=== PATIENT | male | born 1935 | race Caucasian/White ===

== ENCOUNTER 2016-09-29 19:05 | Inpatient (IN) | payer OTHER ==
[~2016-09-29] VITALS: Ht 170.2 cm; Wt 97.8 kg
[~2016-09-29 19:05] MED LIST: AMLO10TA4 PO; ASPI-496 PO; CEFD300C37 PO; SIMV40TA PO; TAMS-11 PO
[2016-09-29] MEDS ORDERED: ACETAMINOPHEN 500 MG TABLET ONE (19:18)
[2016-09-29] MEDS ORDERED: SODIUM CHLORIDE 0.9% 1,000ML IVBOLUS ONE (20:00)
[2016-09-29] MEDS ORDERED: SODIUM CHLORIDE FLUSH 10ML SYR IVF ONE (20:00)
[2016-09-29] MEDS ORDERED: ACETAMINOPHEN 325 MG TABLET PO ONE (20:00)
[2016-09-29 20:21] LABS: ASPARTATE AMINO TRANSFERASE 34 U/L (15-37); BLOOD UREA NITROGEN 22 mg/dL (7-18)
[2016-09-29 20:22] LABS: IS PT STATUS REG ER OR PRE ER? YES
[2016-09-29] MEDS ORDERED: VANCOMYCIN PER PHARMACY MC ONE (22:30)
[2016-09-29] MEDS ORDERED: PLEASE ENTER WEIGHT MC SCH (22:30)
[2016-09-29] MEDS ORDERED: CEFTRIAXONE PMX 1GM/50ML 50 ML IVPB ONE (22:30)
[2016-09-29] MEDS ORDERED: CEFTRIAXONE PMX 1GM/50ML 50 ML ONE (22:37)
[2016-09-29] MEDS ORDERED: VANCOMYCIN PER PHARMACY MC PRN (23:00)
[2016-09-29 23:41] VITALS: BP 127/72
[2016-09-29] MEDS ORDERED: PHARMACOKINETIC MONITORING MC PRN (23:45)
[2016-09-29] MEDS ORDERED: VANCOMYCIN 2,000 MG in SODIUM CHLORIDE 0.9% 500 ML IV ONE (23:45)
[2016-09-30] VITALS (9 sets, daily range): BP systolic 107–180; BP diastolic 58–82
[2016-09-30] MEDS: PIPERACILLIN/TAZO/PMX 3.375GM 50 ML IV SCH ×5 (00:11→23:25)
[2016-09-30] MEDS ORDERED: DIPHENHYDRAMINE 50 MG/ML, 1ML ONE (03:19)
[2016-09-30] MEDS ORDERED: DIPHENHYDRAMINE 50 MG/ML, 1ML IVPush ONE (03:30)
[2016-09-30] MEDS ORDERED: FAMOTIDINE 20 MG/2 ML IVPush ONE (03:30)
[2016-09-30] MEDS ORDERED: ONDANSETRON 2MG/ML, 2ML ONE (03:34)
[2016-09-30] MEDS ORDERED: EPINEPHRINE 1 MG/ML, 1ML SQ ONE (04:00)
[2016-09-30] MEDS ORDERED: ONDANSETRON 2MG/ML, 2ML IVPush ONE (04:00)
[2016-09-30] MEDS ORDERED: ACETAMINOPHEN 325 MG TABLET ONE (04:38)
[2016-09-30 04:50] LABS: BLOOD UREA NITROGEN 18 mg/dL (7-18)
[2016-09-30] MEDS ORDERED: ACETAMINOPHEN 325 MG TABLET PO PRN (05:00)
[2016-09-30] MEDS ORDERED: SODIUM CHLORIDE 0.9%, 500ML IVBOLUS ONE (06:00)
[2016-09-30] MEDS ORDERED: ONDANSETRON 2MG/ML, 2ML IVPush PRN (06:00)
[2016-09-30] MEDS: ASPIRIN 81 MG TABLET EC PO SCH (09:23)
[2016-09-30] MEDS: AMLODIPINE 5 MG TABLET PO SCH (09:24)
[2016-09-30] MEDS ORDERED: VANCOMYCIN PER PHARMACY MC PRN (13:00)
[2016-09-30] MEDS: POTASSIUM CHLORIDE 20 MEQ in SODIUM CHLORIDE 0.45% 1,000 ML IV SCH ×2 (13:28→23:24)
[2016-09-30] MEDS ORDERED: PHARMACOKINETIC MONITORING MC PRN (13:30)
[2016-09-30] MEDS ORDERED: OMNIPAQUE 350 MG/ML, 100ML BOTTLE ONE (15:50)
[2016-09-30] MEDS: SIMVASTATIN 40 MG TABLET PO SCH (19:36)
[2016-10-01] MEDS ORDERED: VANCOMYCIN 1,800 MG in SODIUM CHLORIDE 0.9% 500 ML IV SCH
[2016-10-01 01:31] VITALS: BP 121/61
[2016-10-01] MEDS: PIPERACILLIN/TAZO/PMX 3.375GM 50 ML IV SCH ×3 (05:12→18:31)
[2016-10-01 07:15] VITALS: BP 105/76
[2016-10-01] MEDS: ASPIRIN 81 MG TABLET EC PO SCH (10:17)
[2016-10-01] MEDS: AMLODIPINE 5 MG TABLET PO SCH (10:17)
[2016-10-01] MEDS ORDERED: SENNA/DOCUSATE TABLET PO PRN (11:30)
[2016-10-01] MEDS ORDERED: POLYETHYLENE GLYCOL 17 GM PACKET NG PRN (11:30)
[2016-10-01] MEDS: POTASSIUM CHLORIDE 20 MEQ in SODIUM CHLORIDE 0.45% 1,000 ML IV SCH (13:26)
[2016-10-01 14:26] VITALS: BP 133/61
[2016-10-01] MEDS ORDERED: GADOXETATE DISODIUM 2.5 MMOL/10 ML ONE (15:43)
[2016-10-01 19:54] VITALS: BP 138/75
[2016-10-01] MEDS: SIMVASTATIN 40 MG TABLET PO SCH (20:49)
[2016-10-02] MEDS: PIPERACILLIN/TAZO/PMX 3.375GM 50 ML IV SCH ×3 (01:26→12:42)
[2016-10-02 01:28] VITALS: BP 133/68
[2016-10-02 08:30] VITALS: BP 132/64
[2016-10-02] MEDS: ASPIRIN 81 MG TABLET EC PO SCH (08:53)
[2016-10-02] MEDS: AMLODIPINE 5 MG TABLET PO SCH (08:53)
[2016-10-02 13:51] VITALS: BP 134/74
[2016-10-02] MEDS ORDERED: CEFTRIAXONE PMX 2GM/50ML 50 ML IV SCH (18:00)
[2016-10-02 19:00] VITALS: BP 131/65
[2016-10-02] MEDS: SIMVASTATIN 40 MG TABLET PO SCH (19:53)
[2016-10-03 04:00] VITALS: BP 106/64
[2016-10-03 07:20] VITALS: BP 147/78
[2016-10-03] MEDS: AMLODIPINE 5 MG TABLET PO SCH (08:52)
[2016-10-03] MEDS: ASPIRIN 81 MG TABLET EC PO SCH (08:52)
[2016-10-03] MEDS ORDERED: CEFDINIR 300 MG CAPSULE PO SCH (09:00)
[2016-10-03] MEDS ORDERED: AMOX500T PO (11:00)
== END 2016-10-03 12:56 | disposition home or self-care (01) | DRG 871 ==
LOC: ED 20:58 → EDIP 22:13 → INTOOBSV 22:13 → 3NW 23:32 → OBSVTOIN 09-30 09:35
PROVIDERS: ADMIT Family Medicine; ATTEND Family Medicine
PROC: 0T9B70Z Drainage of Bladder with Drainage Device, Via Natural or Artificial Opening (ICD-10-PCS; principal; 2016-09-29)
DX: A41.50 Gram-negative sepsis, unspecified (principal); G93.40 Encephalopathy, unspecified; K86.2 Cyst of pancreas; I45.10 Unspecified right bundle-branch block; A41.51 Sepsis due to Escherichia coli [E. coli]; B96.20 Unspecified Escherichia coli [E. coli] as the cause of diseases classified elsewhere; E78.00 Pure hypercholesterolemia, unspecified; E78.5 Hyperlipidemia, unspecified; I10 Essential (primary) hypertension; K04.7 Periapical abscess without sinus; K76.89 Other specified diseases of liver; K43.2 Incisional hernia without obstruction or gangrene; R32 Unspecified urinary incontinence; R65.20 Severe sepsis without septic shock; Z80.0 Family history of malignant neoplasm of digestive organs; Z85.46 Personal history of malignant neoplasm of prostate; Z85.820 Personal history of malignant melanoma of skin; Z86.010 Personal history of colon polyps; Z90.49 Acquired absence of other specified parts of digestive tract; Z88.1 Allergy status to other antibiotic agents; Z88.2 Allergy status to sulfonamides; Z79.899 Other long term (current) drug therapy; Z79.82 Long term (current) use of aspirin
CPT/HCPCS: 36415; 70450; 71010; 74177; 74183; 76705; 80048; 80053; 81003; 82105; 82378; 82962; 83605; 83880; 84145; 84484; 85025; 85610; 85730; 86301; 87040; 87077; 87186; 93005; 93306; 96361; 96365; G0378; J0696; J2405; J2543; J3370; J3480; Q9967; A9581; J1200; J7030; J7040; S0028

== ENCOUNTER → 2019-05-10 | Outpatient (CLI) | payer MEDICARE ==
[~2019-05-10] MED LIST changes: +AMOX500T PO; +OMNIPAQUE 350 MG/ML, 150 ML BOTTLE ONE
== END | disposition home or self-care (01) ==
LOC: CFH 13:29
PROVIDERS: ATTEND Physician Assistant
DX: K43.9 Ventral hernia without obstruction or gangrene (principal); K86.2 Cyst of pancreas; M47.9 Spondylosis, unspecified
CPT/HCPCS: 74178; Q9967

== ENCOUNTER 2019-08-03 09:38 | Day surgery (SDC) | payer MEDICARE ==
[~2019-08-03] VITALS: Ht 170.2 cm; Wt 98.2 kg
[~2019-08-03 09:38] MED LIST changes: +GLUC15006 PO; +LISI40TA PO; -OMNIPAQUE 350 MG/ML, 150 ML BOTTLE ONE
[2019-08-03] MEDS ORDERED: FENTANYL PF 100 MCG/2ML ONE (10:21)
[2019-08-03 10:27] VITALS: BP 165/88
[2019-08-03] MEDS ORDERED: CHLORHEXIDINE 15 ML UDC MM STA (10:30)
[2019-08-03] MEDS ORDERED: LACTATED RINGERS 1,000 ML IV SCH (10:31)
[2019-08-03] MEDS ORDERED: CHLORHEXIDINE 15 ML UDC ONE (10:34)
[2019-08-03] MEDS ORDERED: FENTANYL PF 100 MCG/2ML IV PRN (11:00)
[2019-08-03] MEDS ORDERED: OXYcodone 5 MG/5 ML ORAL.SOL UDC PO PRN (11:00)
[2019-08-03] MEDS ORDERED: PROMETHAZINE 25 MG/ML, 1ML IVPush PRN (11:00)
[2019-08-03] MEDS ORDERED: morphine SULFATE 10 MG/ML, 1ML IVPush PRN (11:00)
[2019-08-03] MEDS ORDERED: PROPOFOL 10 MG/ML, 20ML ONE (11:09)
[2019-08-03] MEDS ORDERED: MIDAZOLAM 1 MG/ML, 2ML ONE (11:09)
[2019-08-03] MEDS ORDERED: CEFAZOLIN 1,000 MG ONE (11:09)
[2019-08-03] MEDS ORDERED: GEMCITABINE HCL 2,000 MG in SODIUM CHLORIDE 0.9% 100 ML IS ONE (11:30)
[2019-08-03] MEDS ORDERED: ONDANSETRON 2MG/ML, 2ML IV PRN (12:30)
[2019-08-03] MEDS ORDERED: HYDROcodone/APAP 5/325 TABLET PO PRN (12:30)
[2019-08-03] MEDS ORDERED: hydrALAzine 20 MG/ML, 1ML ONE (12:51)
[2019-08-03] MEDS ORDERED: hydrALAzine 20 MG/ML, 1ML IV PRN (13:00)
== END 2019-08-03 16:10 | disposition home or self-care (01) ==
LOC: OUT 09:38
PROVIDERS: ATTEND Urology
DX: C67.4 Malignant neoplasm of posterior wall of bladder (principal); I10 Essential (primary) hypertension; E66.9 Obesity, unspecified; Z79.82 Long term (current) use of aspirin; Z79.899 Other long term (current) drug therapy; Z85.46 Personal history of malignant neoplasm of prostate; Z88.2 Allergy status to sulfonamides; Z88.8 Allergy status to other drugs, medicaments and biological substances; Z90.79 Acquired absence of other genital organ(s)
CPT/HCPCS: 52234; 88305; 93005; J0360; J0690; J2250; J2704; J3010; J7120; J9201; U0001

== ENCOUNTER 2019-09-19 15:51 | Inpatient (IN) | payer MEDICARE ==
[~2019-09-19] VITALS: Ht 170.2 cm; Wt 97.3 kg
[2019-09-19 16:28] LABS: BASOPHILS # (AUTO) 0.03 x10^3/uL (0-0.1); BASOPHILS % (AUTO) 0 % (0-1); EOSINOPHILS # (AUTO) 0.05 x10^3/uL (0-0.4); EOSINOPHILS % (AUTO) 1 % (1-7); LYMPHOCYTES # (AUTO) 1.62 x10^3/uL (1-3.4); LYMPHOCYTES % (AUTO) 20 % (22-44); MD NO; MEAN CORPUSCULAR HGB CONC 33.8 g/dL (33.2-36.2); MONOCYTES # (AUTO) 0.86 x10^3/uL (0.2-0.8); MONOCYTES % (AUTO) 11 % (2-9); NEUTROPHILS # (AUTO) 5.45 x10^3/uL (1.8-6.8); NEUTROPHILS % (AUTO) 68 % (42-75); PLATELET COUNT 252 x10^3/uL (130-400); RED BLOOD COUNT 4.28 x10^6/uL (4.38-5.82); RED CELL DISTRIBUTION WIDTH 15.4 % (9.4-14.8)
[2019-09-19 16:35] LABS: ANION GAP 6 mmol/L (5-15); CALCIUM 9.2 mg/dL (8.5-10.1); CHLORIDE 105 mmol/L (98-107); CREATININE 1.11 mg/dL (0.7-1.3)
[2019-09-19 16:38] LABS: TROPONIN I < 0.015 ng/mL (0.000-0.045)
--- NOTE | 2019-09-19 16:42 | NUR ---
Pt to room at this time.
--- NOTE | 2019-09-19 16:50 | NUR ---
"SHORTNESS OF BREATH STARTED THIS MORNING. I FEEL FRANK PATTER IN MY LITTLE HEART". PAIN STARTED IN PT'S RLQ ABD AND THEN STARTED CASUING SOB. PT IN ROOM WITH CONT HAND RIVETER, SPO2, BP Q 30 MIN, SIDE RAILS UP X2, CALL LIGHT IN REACH. AWATING MD TO SEE.
--- NOTE | 2019-09-19 16:53 | NUR ---
HXPROSTATE CA 2001,GALL BLADDER REMOVED APR 2016, BLADDER CANCER WITH SURG TWO MONTHS AGO.
[2019-09-19] MEDS ORDERED: AMLO-150 PO (16:58)
[2019-09-19] MEDS ORDERED: AMLO10TA4 PO (16:58)
[2019-09-19] MEDS ORDERED: SODIUM CHLORIDE 0.9% 1,000ML IVBOLUS ONE (18:30)
--- NOTE | 2019-09-19 18:53 | NUR ---
REPORT RECIEVED FROM ELLIE PEARL.
[2019-09-19 19:21] LABS: MICROSCOPIC NOT IND
--- NOTE | 2019-09-19 19:27 | NUR ---
PATIENT TAKEN TO CT VIA DIOR AND SKIP.
[2019-09-19] MEDS ORDERED: OMNIPAQUE 350 MG/ML, 100ML BOTTLE ONE (19:41)
--- NOTE | 2019-09-19 19:44 | NUR ---
PATIENT RETURNED FROM CT SCAN. TOLERATED WELL.
--- NOTE | 2019-09-19 20:07 | NUR ---
PATIENT UPDATED ON PLAN OF CARE. PATIENT AND DAUGHTER DENY ANY FURTHER NEEDS AT THIS TIME.
--- NOTE | 2019-09-19 20:44 | NUR ---
PATIENT AND DAUGHTER UPDATED ON PLAN OF CARE.
--- NOTE | 2019-09-19 21:10 | NUR ---
PATIENT TAKEN TO CT VIA GURNEY.
[2019-09-19] MEDS ORDERED: OMNIPAQUE 350 MG/ML, 75ML BOTTLE ONE (21:48)
--- NOTE | 2019-09-19 21:49 | NUR ---
PATIENT AND FAMILY UPDATED ON PLAN OF CARE. NO NOTED FURTHER NEEDS AT THIS TIME. PATIENT DENIES NEEDING ANY EDUCATION REGARDING PE AND CTA RESULTES.
[2019-09-19] MEDS ORDERED: HEPARIN 25,000 UNITS/250ML PMX 250 ML IV PRN (22:00)
[2019-09-19] MEDS ORDERED: HEPARIN 5,000 UNITS/ML, 1ML IV ONE (22:00)
[2019-09-19] MEDS ORDERED: HEPARIN 25,000 UNITS/250ML PMX 250 ML ONE (22:04)
[2019-09-19] MEDS ORDERED: HEPARIN 5,000 UNITS/ML, 1ML ONE (22:04)
[2019-09-19] MEDS ORDERED: SODIUM CHLORIDE FLUSH 10ML SYR IVF PRN (22:30)
[2019-09-19] MEDS ORDERED: MORPHINE SULFATE 4 MG/ML, 1ML ONE (22:40)
[2019-09-19] MEDS ORDERED: ONDANSETRON 2MG/ML, 2ML ONE (22:40)
--- NOTE | 2019-09-19 22:40 | NUR ---
PATIENT HAS HAD SECOND IV STARTED, 20G LEFT HAND. TOLERATED WELL. PAIN MEDICATIONS ADMINISTERED PER ORDER. PATIENT GIVEN INFORMATION REGARDING NAUSEA MEDICATIONS AND PAIN MEDICATIONS, VERBALLY CONFIRMED EDUCATION. NO NOTED ACUTE DISTRESS. WILL CONTINUE TO MONITOR. PATIENT TOLERATING THERAPY WELL.
[2019-09-19] MEDS ORDERED: ONDANSETRON 2MG/ML, 2ML IVPush ONE (23:00)
[2019-09-19] MEDS ORDERED: MORPHINE SULFATE 4 MG/ML, 1ML IVPush PRN (23:00)
--- NOTE | 2019-09-19 23:28 | NUR ---
PATIENT AND FAMILY UPDATED ON PLAN OF CARE. NO NOTED FURTHER NEEDS AT THIS TIME. PATIENT WILL BE TRANSFERRED TO FLOOR. REPORT GIVEN TO ELLIE FOLEY, ROOM NUMBER [id number]. FAMILY GIVEN INFORMATION AND CONTACT INFORMATION FOR UNIT
[2019-09-19] MEDS ORDERED: METOCLOPRAMIDE 5 MG/ML, 2ML IVPush PRN (23:30)
[2019-09-19] MEDS ORDERED: LABETALOL 5MG/ML, 20ML IVPush PRN (23:30)
[2019-09-19] MEDS ORDERED: ONDANSETRON 2MG/ML, 2ML IVPush PRN (23:30)
[2019-09-19] MEDS ORDERED: hydrALAzine 20 MG/ML, 1ML IVPush PRN (23:30)
[2019-09-19] MEDS ORDERED: ENALAPRILAT 1.25 MG/ML, 2ML IVPush PRN (23:30)
[2019-09-19] MEDS ORDERED: BISACODYL 10 MG SUPP PR PRN (23:30)
[2019-09-19] MEDS ORDERED: morphine SULFATE 10 MG/ML, 1ML IVPush PRN (23:30)
[2019-09-19] MEDS ORDERED: TRAZODONE 50MG TABLET PO PRN (23:30)
[2019-09-19] MEDS ORDERED: POLYETHYLENE GLYCOL 17 GM PACKET PO PRN (23:30)
[2019-09-19] MEDS ORDERED: ONDANSETRON ODT 4 MG PO PRN (23:30)
[2019-09-19] MEDS ORDERED: ACETAMINOPHEN 325 MG TABLET PO PRN (23:30)
[2019-09-19] MEDS ORDERED: HEPARIN 5,000 UNITS/ML, 1ML IV PRN (23:45)
[2019-09-20] VITALS (7 sets, daily range): BP systolic 94–133; BP diastolic 46–73
[2019-09-20] MEDS: DOCUSATE 100 MG CAPSULE PO PRN ×2 (00:53→16:25)
[2019-09-20 05:05] LABS: BASOPHILS # (AUTO) 0.03 x10^3/uL (0-0.1); BASOPHILS % (AUTO) 0 % (0-1); EOSINOPHILS # (AUTO) 0.02 x10^3/uL (0-0.4); EOSINOPHILS % (AUTO) 0 % (1-7); LYMPHOCYTES # (AUTO) 2.31 x10^3/uL (1-3.4); LYMPHOCYTES % (AUTO) 29 % (22-44); MD NO; MEAN CORPUSCULAR HGB CONC 33.7 g/dL (33.2-36.2); MEAN PLATELET VOLUME 8.1 fL (7.4-10.4); MONOCYTES # (AUTO) 0.84 x10^3/uL (0.2-0.8); MONOCYTES % (AUTO) 11 % (2-9); NEUTROPHILS # (AUTO) 4.68 x10^3/uL (1.8-6.8); NEUTROPHILS % (AUTO) 59 % (42-75); PLATELET COUNT 215 x10^3/uL (130-400); RED BLOOD COUNT 4.04 x10^6/uL (4.38-5.82); RED CELL DISTRIBUTION WIDTH 15.4 % (9.4-14.8)
[2019-09-20 05:13] LABS: ANION GAP 6 mmol/L (5-15); CALCIUM 8.6 mg/dL (8.5-10.1); CHLORIDE 106 mmol/L (98-107)
[2019-09-20] MEDS: AMLODIPINE 10 MG TAB PO SCH (09:14)
[2019-09-20] MEDS: ENOXAPARIN 100 MG/ML SQ SCH ×2 (09:14→21:54)
[2019-09-20] MEDS: LACTULOSE 10 GM/15 ML UDC PO SCH ×2 (11:33→21:54)
[2019-09-20] MEDS: ATORVASTATIN 20 MG TABLET PO SCH (21:54)
[2019-09-21] MEDS ORDERED: SODIUM CHLORIDE 0.9%, 500ML IVBOLUS ONE (00:30)
[2019-09-21 02:32] VITALS: BP 115/57
[2019-09-21] MEDS: LACTULOSE 10 GM/15 ML UDC PO SCH ×2 (09:00→23:42)
[2019-09-21 09:25] VITALS: BP 113/60
[2019-09-21] MEDS: ENOXAPARIN 100 MG/ML SQ SCH (11:07)
[2019-09-21] MEDS: AMLODIPINE 10 MG TAB PO SCH (11:07)
[2019-09-21 16:00] VITALS: BP 109/57
[2019-09-21] MEDS: RIVAROXABAN 15 MG TABLET PO SCH (17:51)
[2019-09-21 20:32] VITALS: BP 115/63
[2019-09-21] MEDS: ATORVASTATIN 20 MG TABLET PO SCH (23:42)
[2019-09-22 00:23] VITALS: BP 119/62
[2019-09-22 07:57] VITALS: BP 125/61
[2019-09-22] MEDS: RIVAROXABAN 15 MG TABLET PO SCH ×2 (10:13→18:49)
[2019-09-22] MEDS: AMLODIPINE 10 MG TAB PO SCH (10:13)
[2019-09-22] MEDS: LACTULOSE 10 GM/15 ML UDC PO SCH ×2 (10:14→20:26)
[2019-09-22 12:14] VITALS: BP 121/67
[2019-09-22 12:25] LABS: BASOPHILS # (AUTO) 0.02 x10^3/uL (0-0.1); BASOPHILS % (AUTO) 0 % (0-1); EOSINOPHILS # (AUTO) 0.07 x10^3/uL (0-0.4); EOSINOPHILS % (AUTO) 1 % (1-7); LYMPHOCYTES # (AUTO) 1.61 x10^3/uL (1-3.4); LYMPHOCYTES % (AUTO) 22 % (22-44); MD NO; MEAN CORPUSCULAR HEMOGLOBIN 33.7 pg (27.5-34.5); MEAN CORPUSCULAR HGB CONC 33.2 g/dL (33.2-36.2); MEAN PLATELET VOLUME 7.6 fL (7.4-10.4); MONOCYTES # (AUTO) 0.59 x10^3/uL (0.2-0.8); MONOCYTES % (AUTO) 8 % (2-9); NEUTROPHILS # (AUTO) 5.06 x10^3/uL (1.8-6.8); NEUTROPHILS % (AUTO) 69 % (42-75); PLATELET COUNT 240 x10^3/uL (130-400); RED BLOOD COUNT 3.81 x10^6/uL (4.38-5.82)
[2019-09-22 18:37] VITALS: BP 125/75
[2019-09-22] MEDS: ATORVASTATIN 20 MG TABLET PO SCH (20:26)
[2019-09-23 01:54] VITALS: BP 136/67
[2019-09-23 05:00] LABS: BASOPHILS # (AUTO) 0.01 x10^3/uL (0-0.1); BASOPHILS % (AUTO) 0 % (0-1); EOSINOPHILS # (AUTO) 0.13 x10^3/uL (0-0.4); EOSINOPHILS % (AUTO) 2 % (1-7); LYMPHOCYTES # (AUTO) 1.64 x10^3/uL (1-3.4); LYMPHOCYTES % (AUTO) 25 % (22-44); MD NO; MEAN CORPUSCULAR HGB CONC 33.5 g/dL (33.2-36.2); MEAN PLATELET VOLUME 7.9 fL (7.4-10.4); MONOCYTES # (AUTO) 0.54 x10^3/uL (0.2-0.8); MONOCYTES % (AUTO) 8 % (2-9); NEUTROPHILS # (AUTO) 4.37 x10^3/uL (1.8-6.8); NEUTROPHILS % (AUTO) 65 % (42-75); PLATELET COUNT 241 x10^3/uL (130-400); RED BLOOD COUNT 3.91 x10^6/uL (4.38-5.82); RED CELL DISTRIBUTION WIDTH 14.8 % (9.4-14.8)
[2019-09-23 05:08] LABS: CREATININE 0.75 mg/dL (0.7-1.3)
[2019-09-23 08:04] VITALS: BP 125/70
[2019-09-23] MEDS: AMLODIPINE 10 MG TAB PO SCH (10:44)
[2019-09-23] MEDS: LACTULOSE 10 GM/15 ML UDC PO SCH ×2 (10:44→20:22)
[2019-09-23 12:38] VITALS: BP 104/56
[2019-09-23] MEDS: RIVAROXABAN 15 MG TABLET PO SCH (18:41)
[2019-09-23 19:51] VITALS: BP 126/76
[2019-09-23] MEDS: ATORVASTATIN 20 MG TABLET PO SCH (20:22)
[2019-09-24 00:48] VITALS: BP 118/70
[2019-09-24 07:16] VITALS: BP 119/72
[2019-09-24] MEDS: RIVAROXABAN 15 MG TABLET PO SCH ×2 (08:04→16:29)
[2019-09-24] MEDS: AMLODIPINE 10 MG TAB PO SCH (08:04)
[2019-09-24] MEDS: LACTULOSE 10 GM/15 ML UDC PO SCH ×2 (08:04→21:31)
[2019-09-24 12:05] VITALS: BP 135/72
[2019-09-24 20:00] VITALS: BP 128/70
[2019-09-24] MEDS: ATORVASTATIN 20 MG TABLET PO SCH (21:31)
[2019-09-25 00:51] VITALS: BP 105/64
[2019-09-25 06:22] VITALS: BP 127/75
[2019-09-25] MEDS: AMLODIPINE 10 MG TAB PO SCH (09:15)
[2019-09-25] MEDS: LACTULOSE 10 GM/15 ML UDC PO SCH ×2 (09:15→20:21)
[2019-09-25] MEDS: RIVAROXABAN 15 MG TABLET PO SCH ×2 (09:15→17:37)
[2019-09-25 09:17] VITALS: BP 136/75
[2019-09-25 18:41] VITALS: BP 138/76
[2019-09-25] MEDS: ATORVASTATIN 20 MG TABLET PO SCH (20:21)
[2019-09-26 01:43] VITALS: BP 131/72
[2019-09-26 06:29] VITALS: BP 126/76
[2019-09-26] MEDS: RIVAROXABAN 15 MG TABLET PO SCH (10:10)
[2019-09-26] MEDS: LACTULOSE 10 GM/15 ML UDC PO SCH (10:10)
[2019-09-26] MEDS: AMLODIPINE 10 MG TAB PO SCH (10:10)
[2019-09-26 12:11] VITALS: BP 123/70
[2019-09-26] MEDS ORDERED: ATOR20TA37 PO (14:47)
[2019-09-26] MEDS ORDERED: BISA10SU4 PR (14:47)
[2019-09-26] MEDS ORDERED: RIVA15TA PO (14:47)
[2019-09-26] MEDS ORDERED: LACT10SO24 PO (14:47)
[2019-09-26] MEDS ORDERED: RIVA20TA PO (14:47)
[2019-10-13] MEDS ORDERED: RIVAROXABAN 20 MG TABLET PO SCH (17:00)
== END 2019-09-26 16:20 | disposition home or self-care (01) | DRG 175 ==
LOC: ED 22:11 → EDIP 23:09 → 4NW 23:52 → ICU 09-20 05:26 → 4NW 09-21 18:46 → 4WST 09-25 13:39 → DCLOUNGE 09-26 16:07
PROVIDERS: ADMIT Family Medicine; ATTEND Internal Medicine
DX: I26.99 Other pulmonary embolism without acute cor pulmonale (principal); J96.01 Acute respiratory failure with hypoxia; I82.439 Acute embolism and thrombosis of unspecified popliteal vein; K86.2 Cyst of pancreas; E66.9 Obesity, unspecified; E78.5 Hyperlipidemia, unspecified; I10 Essential (primary) hypertension; E78.00 Pure hypercholesterolemia, unspecified; K43.9 Ventral hernia without obstruction or gangrene; K57.30 Diverticulosis of large intestine without perforation or abscess without bleeding; D49.4 Neoplasm of unspecified behavior of bladder; N19 Unspecified kidney failure; Z20.828 Contact with and (suspected) exposure to other viral communicable diseases; Z85.46 Personal history of malignant neoplasm of prostate; Z90.79 Acquired absence of other genital organ(s); Z88.1 Allergy status to other antibiotic agents; Z88.2 Allergy status to sulfonamides; Z80.0 Family history of malignant neoplasm of digestive organs; Z85.51 Personal history of malignant neoplasm of bladder; Z80.8 Family history of malignant neoplasm of other organs or systems; Z79.84 Long term (current) use of oral hypoglycemic drugs; Z79.01 Long term (current) use of anticoagulants; Z79.899 Other long term (current) drug therapy
CPT/HCPCS: 36415; 71046; 71275; 74177; 80048; 81003; 82565; 83880; 84484; 85025; 85520; 87081; 93005; 93970; 96361; 96374; 96375; 96376; G0378; J1644; J1650; J2405; Q9967; J2270; J7030; J7040; U0001-CS

== ENCOUNTER 2020-07-05 17:11 | Inpatient (IN) | payer MEDICARE ==
[~2020-07-05] VITALS: Ht 170.2 cm; Wt 88.8 kg
[~2020-07-05 17:11] MED LIST changes: +AMLO-150 PO; +ATOR20TA37 PO; +BISA10SU4 PR; +LACT10SO24 PO; -LISI40TA PO; +LISI40TA9 PO; +RIVA15TA PO; +RIVA20TA PO
[2020-07-05] MEDS ORDERED: SODIUM CHLORIDE 0.9% 1,000ML IVBOLUS ONE (17:30)
[2020-07-05] MEDS ORDERED: SODIUM CHLORIDE FLUSH 10ML SYR IVF ONE (17:30)
--- NOTE | 2020-07-05 17:55 | NUR ---
MD AT BEDSIDE AND DAUGHTER ARRIVED WITH HISTORY. DRESSING REMOVED FROM BACK WITH PACKING REMOVED PER MD. MD STATES WOUND NEEDS TO BE REPACKED. PER MEDIC PT WAS MORE LETHARGIC WHEN PICKED UP FROM [facility] AND SEEMED TO PERK UP WITH FLUIDS
[2020-07-05 17:56] LABS: BASOPHILS % (AUTO) 1 % (0-1); EOSINOPHILS % (AUTO) 1 % (1-7); LYMPHOCYTES % (AUTO) 18 % (22-44); MEAN CORPUSCULAR HEMOGLOBIN 35.1 pg (27.5-34.5); MEAN CORPUSCULAR HGB CONC 33.6 g/dL (33.2-36.2); MEAN PLATELET VOLUME 9.2 fL (7.4-10.4); MONOCYTES % (AUTO) 12 % (2-9); NEUTROPHILS % (AUTO) 69 % (42-75); PLATELET COUNT 97 x10^3/uL (130-400); RED BLOOD COUNT 3.12 x10^6/uL (4.38-5.82); RED CELL DISTRIBUTION WIDTH 15.8 % (9.4-14.8)
[2020-07-05 18:08] LABS: ALANINE AMINOTRANSFERASE 154 U/L (12-78); ALBUMIN 2.6 g/dL (3.4-5.0); ANION GAP 5 mmol/L (5-15); CALCIUM 9.1 mg/dL (8.5-10.1); CHLORIDE 110 mmol/L (98-107); CREATININE 0.99 mg/dL (0.7-1.3)
[2020-07-05 18:11] LABS: ALKALINE PHOSPHATASE 98 U/L (45-117); BILIRUBIN,TOTAL 1.1 mg/dL (0.2-1.0); TOTAL PROTEIN 8.4 g/dL (6.4-8.2)
--- NOTE | 2020-07-05 18:17 | NUR ---
IN AND OUT CATH WITH 10 ML CLOUDY URINE OUTPUT BROUGHT TO LAB
[2020-07-05 18:47] LABS: MICROSCOPIC INDICATED
--- NOTE | 2020-07-05 19:00 | NUR ---
received report from off going RN.
[2020-07-05] MEDS ORDERED: CEFTRIAXONE PMX 1GM/50ML 50 ML ONE (20:12)
[2020-07-05] MEDS ORDERED: AZITHROMYCIN 500 MG in SODIUM CHLORIDE 0.9% 250 ML IV ONE (20:15)
[2020-07-05] MEDS ORDERED: CEFTRIAXONE PMX 1GM/50ML 50 ML IVPB ONE (20:15)
--- NOTE | 2020-07-05 20:21 | NUR ---
UNR MD'S TO BEDSIDE TO EVAL PT. ANTIBIOTICS STARTED PER MD ORDER. FAMILY AT BEDSIDE CONFERRING WITH MD'S.
--- NOTE | 2020-07-05 20:21 | NUR ---
REPORT CALLED TO FLOOR RN.
--- NOTE | 2020-07-05 20:58 | NUR ---
SMALL OPEN WOUND TO PTS UPPER BACK HAS BEEN PACKED USING STERILE TECHNIQUE AND DRESSED WITH 4X4 DRESSING. PT TOLERATED WELL
--- NOTE | 2020-07-05 21:27 | NUR ---
REPORT CALLED TO FLOOR RN. PT TO BE TRANSPORTED. AWAKE, ALERT, AND DAUGHTERS AT BEDSIDE AND HELPING PT EAT HIS SANDWICH. PIV INTACT.
[2020-07-05] MEDS ORDERED: hydrALAzine 20 MG/ML, 1ML IVPush PRN (21:30)
[2020-07-05] MEDS ORDERED: DOCUSATE 100 MG CAPSULE PO PRN (21:30)
[2020-07-05] MEDS ORDERED: LABETALOL 5MG/ML, 20ML IVPush PRN (21:30)
[2020-07-05] MEDS ORDERED: ACETAMINOPHEN 325 MG TABLET PO PRN (21:30)
[2020-07-05] MEDS ORDERED: POLYETHYLENE GLYCOL 17 GM PACKET PO PRN (21:30)
--- NOTE | 2020-07-05 21:31 | NUR ---
PTS DAUGHTER PROVIDED MEDICATION LIST OF WHAT ANTIBIOTICS PT IS TAKING AFTER THE WOUND IN HIS BACK WAS CLEANED AND PACKED. PER DAUGHTER, PT TOOK CEPHALEXIN 500MG FOR HIS BACK ABCESS AND TOOK ONE DOSE, BUT THEN ADMITTED TO THE HOSPITAL AND SWITCHED HIM TO AUGMENTIN 875-125MG AND DOXYCYCLINE 100MG.
[2020-07-05] MEDS: LACTATED RINGERS 1,000 ML IV SCH (22:27)
[2020-07-05] MEDS: ENOXAPARIN 40 MG/0.4 ML SQ SCH (22:27)
[2020-07-06] MEDS ORDERED: FOLIC ACID 1 MG TABLET PO ONE
[2020-07-06 02:15] VITALS: BP 113/60
[2020-07-06 06:21] LABS: BASOPHILS % (AUTO) 1 % (0-1); EOSINOPHILS % (AUTO) 1 % (1-7); LYMPHOCYTES % (AUTO) 44 % (22-44); MEAN CORPUSCULAR HEMOGLOBIN 36.1 pg (27.5-34.5); MEAN CORPUSCULAR HGB CONC 34.4 g/dL (33.2-36.2); MEAN PLATELET VOLUME 9.3 fL (7.4-10.4); MONOCYTES % (AUTO) 8 % (2-9); NEUTROPHILS % (AUTO) 46 % (42-75); PLATELET COUNT 86 x10^3/uL (130-400); RED BLOOD COUNT 2.73 x10^6/uL (4.38-5.82)
[2020-07-06 06:28] LABS: ALBUMIN 2.2 g/dL (3.4-5.0); CALCIUM 8.4 mg/dL (8.5-10.1); CHLORIDE 110 mmol/L (98-107)
[2020-07-06 06:39] LABS: ALANINE AMINOTRANSFERASE 143 U/L (12-78); ALKALINE PHOSPHATASE 88 U/L (45-117); ANION GAP 7 mmol/L (5-15); BILIRUBIN,TOTAL 0.6 mg/dL (0.2-1.0); CREATININE 0.89 mg/dL (0.7-1.3); TOTAL PROTEIN 7.2 g/dL (6.4-8.2)
[2020-07-06 07:07] LABS: ANISOCYTOSIS 1+
[2020-07-06 07:08] LABS: <PLATELET ESTIMATE> DECREASED; <PLT MORPHOLOGY> NORMAL PLT MORPH; OVALOCYTES 1+
[2020-07-06] MEDS: LACTATED RINGERS 1,000 ML IV SCH ×2 (07:30→20:28)
[2020-07-06] MEDS: CYANOCOBALAMIN 1,000 MCG TABLET PO SCH (09:00)
[2020-07-06 09:07] VITALS: BP 121/72
[2020-07-06] MEDS: CHOLECALCIFEROL 5,000u TAB PO SCH (09:25)
[2020-07-06] MEDS: LISINOPRIL 20 MG TABLET PO SCH (09:25)
[2020-07-06] MEDS: DOXYCYCLINE 100MG TABLET PO SCH ×2 (09:25→20:28)
[2020-07-06 14:00] VITALS: BP 121/64
[2020-07-06] MEDS ORDERED: GADOTERATE 10 MMOL/20ML SYR ONE (17:32)
[2020-07-06] MEDS: CEFTRIAXONE PMX 1GM/50ML 50 ML IV SCH (18:11)
[2020-07-06 20:03] VITALS: BP 115/66
[2020-07-06] MEDS: ENOXAPARIN 40 MG/0.4 ML SQ SCH (20:28)
[2020-07-07 02:45] VITALS: BP 125/79
[2020-07-07] MEDS: LACTATED RINGERS 1,000 ML IV SCH (03:37)
[2020-07-07 06:10] LABS: ALANINE AMINOTRANSFERASE 191 U/L (12-78); ALBUMIN 2.2 g/dL (3.4-5.0); ANION GAP 5 mmol/L (5-15); CALCIUM 8.9 mg/dL (8.5-10.1); CHLORIDE 113 mmol/L (98-107); CREATININE 0.87 mg/dL (0.7-1.3)
[2020-07-07 06:13] LABS: ALKALINE PHOSPHATASE 98 U/L (45-117); BILIRUBIN,TOTAL 0.5 mg/dL (0.2-1.0); TOTAL PROTEIN 7.3 g/dL (6.4-8.2)
[2020-07-07 06:22] LABS: MEAN CORPUSCULAR HEMOGLOBIN 35.8 pg (27.5-34.5); MEAN CORPUSCULAR HGB CONC 34.1 g/dL (33.2-36.2); MEAN PLATELET VOLUME 9.8 fL (7.4-10.4); PLATELET COUNT 91 x10^3/uL (130-400); RED BLOOD COUNT 2.93 x10^6/uL (4.38-5.82); RED CELL DISTRIBUTION WIDTH 16.3 % (9.4-14.8)
[2020-07-07 06:33] LABS: AMPHETAMINE SCREEN, URINE Negative (Negative); BARBITURATE SCREEN, URINE Negative (Negative); BENZODIAZEPINE SCREEN, URINE Negative (Negative); CANNABINOID SCREEN, URINE Negative (Negative); COCAINE SCREEN, URINE Negative (Negative); METHADONE SCREEN, URINE Negative (Negative); OPIATE SCREEN, URINE Negative (Negative)
[2020-07-07 07:36] LABS: ANISOCYTOSIS 1+; BANDS%(MANUAL) 3 % (0-7); EOS#(MANUAL) 0.07 x10^3/uL (0.0-0.4); EOS% (MANUAL) 2 % (1-7); LYMPH#(MANUAL) 2.11 x10^3/uL (1-3.4); LYMPHS% (MANUAL) 64 % (22-44); MONOS% (MANUAL) 9 % (2-9); SEG#(MANUAL) 0.73 x10^3/uL (1.8-6.8); SEGS% (MANUAL) 22 % (42-75)
[2020-07-07 07:37] LABS: <PLATELET ESTIMATE> DECREASED; <PLT MORPHOLOGY> NORMAL PLT MORPH; SMUDGE CELLS 1+
[2020-07-07] MEDS: DOXYCYCLINE 100MG TABLET PO SCH ×2 (08:10→20:54)
[2020-07-07] MEDS: CHOLECALCIFEROL 5,000u TAB PO SCH (08:10)
[2020-07-07] MEDS: LISINOPRIL 20 MG TABLET PO SCH (08:10)
[2020-07-07] MEDS: FOLIC ACID 1 MG TABLET PO SCH (08:10)
[2020-07-07] MEDS: CYANOCOBALAMIN 1,000 MCG TABLET PO SCH (08:10)
[2020-07-07 08:20] VITALS: BP 157/86
[2020-07-07] MEDS ORDERED: FOLI1TAB32 PO (11:48)
[2020-07-07] MEDS ORDERED: Cyanocobalamin PO (11:48)
[2020-07-07] MEDS ORDERED: DOXY100T PO ×2 (11:48)
[2020-07-07] MEDS ORDERED: CEFD300C37 PO ×2 (11:48)
[2020-07-07 15:25] VITALS: BP 156/74
[2020-07-07] MEDS: CEFTRIAXONE PMX 1GM/50ML 50 ML IV SCH (18:32)
[2020-07-07 20:00] VITALS: BP 159/67
[2020-07-07] MEDS: ENOXAPARIN 40 MG/0.4 ML SQ SCH (20:55)
[2020-07-08 02:00] VITALS: BP 132/69
[2020-07-08 05:50] LABS: MEAN CORPUSCULAR HEMOGLOBIN 35.6 pg (27.5-34.5); MEAN CORPUSCULAR HGB CONC 33.9 g/dL (33.2-36.2); MEAN PLATELET VOLUME 9.2 fL (7.4-10.4); PLATELET COUNT 98 x10^3/uL (130-400); RED BLOOD COUNT 3.06 x10^6/uL (4.38-5.82); RED CELL DISTRIBUTION WIDTH 15.4 % (9.4-14.8)
[2020-07-08 06:03] LABS: CHLORIDE 109 mmol/L (98-107)
[2020-07-08 06:11] LABS: ALANINE AMINOTRANSFERASE 164 U/L (12-78); ALBUMIN 2.3 g/dL (3.4-5.0); ALKALINE PHOSPHATASE 103 U/L (45-117); ANION GAP 5 mmol/L (5-15); BILIRUBIN,TOTAL 0.5 mg/dL (0.2-1.0); CALCIUM 8.8 mg/dL (8.5-10.1); CREATININE 0.74 mg/dL (0.7-1.3); TOTAL PROTEIN 7.6 g/dL (6.4-8.2)
[2020-07-08 06:25] LABS: <PLATELET ESTIMATE> DECREASED; <PLT MORPHOLOGY> NORMAL PLT MORPH; ANISOCYTOSIS 1+; BAND#(MANUAL) 0.04 x10^3/uL; BANDS%(MANUAL) 1 % (0-7); EOS#(MANUAL) 0.31 x10^3/uL (0.0-0.4); EOS% (MANUAL) 8 % (1-7); LYMPHS% (MANUAL) 59 % (22-44); MONOS#(MANUAL) 0.31 x10^3/uL (0.3-2.7); MONOS% (MANUAL) 8 % (2-9); SEG#(MANUAL) 0.94 x10^3/uL (1.8-6.8); SEGS% (MANUAL) 24 % (42-75); SMUDGE CELLS 1+
[2020-07-08 06:27] LABS: OVALOCYTES 1+
[2020-07-08 07:48] VITALS: BP_SYST 163; BP_SYST 63; BP_DIAS 81
[2020-07-08 09:20] VITALS: BP 137/66
[2020-07-08] MEDS: CYANOCOBALAMIN 1,000 MCG TABLET PO SCH (09:22)
[2020-07-08] MEDS: FOLIC ACID 1 MG TABLET PO SCH (09:22)
[2020-07-08] MEDS: CHOLECALCIFEROL 5,000u TAB PO SCH (09:22)
[2020-07-08] MEDS: DOXYCYCLINE 100MG TABLET PO SCH (09:22)
[2020-07-08] MEDS: LISINOPRIL 20 MG TABLET PO SCH (09:24)
[2020-07-08 12:59] VITALS: BP 146/68
== END 2020-07-08 15:43 | disposition home health service (06) | DRG 193 ==
LOC: ED 18:22 → EDIP 19:43 → 4EST 21:55
PROVIDERS: ADMIT Internal Medicine; ATTEND Internal Medicine
DX: J15.9 Unspecified bacterial pneumonia (principal); G93.41 Metabolic encephalopathy; E87.2 Acidosis; F03.90 Unspecified dementia, unspecified severity, without behavioral disturbance, psychotic disturbance, mood disturbance, and anxiety; D53.9 Nutritional anemia, unspecified; D69.6 Thrombocytopenia, unspecified; E78.00 Pure hypercholesterolemia, unspecified; E78.5 Hyperlipidemia, unspecified; I10 Essential (primary) hypertension; Z80.0 Family history of malignant neoplasm of digestive organs; Z85.46 Personal history of malignant neoplasm of prostate; Z85.51 Personal history of malignant neoplasm of bladder; R74.01 Elevation of levels of liver transaminase levels; Z88.2 Allergy status to sulfonamides; I49.8 Other specified cardiac arrhythmias; D72.829 Elevated white blood cell count, unspecified
CPT/HCPCS: 36415; 70450; 70553; 71045; 80053; 80074; 80307; 81001; 82140; 83036; 83605; 83735; 84100; 84443; 85025; 87040; 93005; 96374; 96375; 99291; G0378; J0456; J0696; J1650; A9575; J7030; J7050; J7120

== ENCOUNTER → 2020-07-16 | Outpatient (CLI) | payer MEDICARE ==
[~2020-07-16] MED LIST changes: +Cyanocobalamin PO; +DOXY100T PO; +FOLI1TAB32 PO
== END | disposition home or self-care (01) ==
LOC: CFH 08:33
PROVIDERS: ATTEND Specialist
DX: D47.2 Monoclonal gammopathy (principal); R94.5 Abnormal results of liver function studies
CPT/HCPCS: 76700

== ENCOUNTER 2020-07-21 14:46 | Observation (INO) | payer MEDICARE ==
[~2020-07-21] VITALS: Ht 165.1 cm; Wt 86.0 kg
--- NOTE | 2020-07-21 15:20 | NUR ---
assumed care of pt. pt BIB daughter from home c/o increasing confusion over the last 3 months but significantly worse today as well as mulitple falls at home. per daughter, pt has a witnessed fall last nocs and an unwitnessed fall today. pt has mulitple abrasions and one skin tear but no open wounds and no active bleeding. pt had recent hospitalization for PNA but has no respiratory distress at this time. pt has no physical c/o at this time. per daughter, pt was c/o SHAW and back pain [employer] HELPER but was given tylenol [employer] WORKER HELPER and now denies. 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
[2020-07-21] MEDS ORDERED: SODIUM CHLORIDE FLUSH 10ML SYR IVF ONE (15:30)
[2020-07-21 15:45] LABS: MEAN CORPUSCULAR HEMOGLOBIN 36.1 pg (27.5-34.5); MEAN CORPUSCULAR HGB CONC 34.4 g/dL (33.2-36.2); MEAN PLATELET VOLUME 8.8 fL (7.4-10.4); PLATELET COUNT 124 x10^3/uL (130-400); RED BLOOD COUNT 2.94 x10^6/uL (4.38-5.82); RED CELL DISTRIBUTION WIDTH 16.5 % (9.4-14.8)
[2020-07-21 15:55] LABS: ALANINE AMINOTRANSFERASE 94 U/L (12-78); ALBUMIN 2.4 g/dL (3.4-5.0); ANION GAP 7 mmol/L (5-15); CALCIUM 8.7 mg/dL (8.5-10.1); CHLORIDE 111 mmol/L (98-107); CREATININE 1.13 mg/dL (0.7-1.3)
[2020-07-21 15:58] LABS: ALKALINE PHOSPHATASE 123 U/L (45-117); TOTAL PROTEIN 8.7 g/dL (6.4-8.2); TROPONIN I < 0.015 ng/mL (0.000-0.045)
[2020-07-21 16:21] LABS: ANISOCYTOSIS 1+; BAND#(MANUAL) 0.37 x10^3/uL; BANDS%(MANUAL) 9 % (0-7); BASOS#(MANUAL) 0.04 x10^3/uL (0-0.1); BASOS% (MANUAL) 1 % (0-1); LYMPH#(MANUAL) 1.03 x10^3/uL (1-3.4); LYMPHS% (MANUAL) 25 % (22-44); METAMYELOCYTES# (MANUAL) 0.04 x10^3/uL (0-0); METAMYELOCYTES% (MANUAL) 1 % (0-1); MONOS#(MANUAL) 0.21 x10^3/uL (0.3-2.7); MONOS% (MANUAL) 5 % (2-9); REACTIVE LYMPHS # (MANUAL) 0.04 x10^3/uL (0-0); REACTIVE LYMPHS % (MANUAL) 1 % (0-0); SEG#(MANUAL) 2.38 x10^3/uL (1.8-6.8); SEGS% (MANUAL) 58 % (42-75)
[2020-07-21 16:22] LABS: <PLATELET ESTIMATE> DECREASED; <PLT MORPHOLOGY> NORMAL PLT MORPH; OVALOCYTES 1+
--- NOTE | 2020-07-21 16:44 | NUR ---
lab has been to bedside to draw. pt has been to CT x-ray has been to bedside IV started by RN student. well tolerated by pt warm blankets and warmer have been given for comfort. pt resting on gurney. pt daughte at bedside. pt and daughter aware that urine sample needed. urinal given
--- NOTE | 2020-07-21 17:25 | NUR ---
pt resting on rjuana diaz daughter at bedside urine sample has been collected and sent pt to be admitted
[2020-07-21] MEDS ORDERED: SODIUM CHLORIDE 0.9% 1,000 ML IV ONE (17:30)
--- NOTE | 2020-07-21 17:52 | NUR ---
report called to Donna ARGUETA
--- NOTE | 2020-07-21 17:55 | NUR ---
hospitalist at bedside for eval
[2020-07-21 18:12] LABS: MICROSCOPIC INDICATED
[2020-07-21] MEDS ORDERED: BISACODYL 10 MG SUPP PR PRN (18:30)
[2020-07-21] MEDS ORDERED: ONDANSETRON ODT 4 MG PO PRN (18:30)
[2020-07-21] MEDS ORDERED: POLYETHYLENE GLYCOL 17 GM PACKET PO PRN (18:30)
[2020-07-21] MEDS: HEPARIN 5,000 UNITS/ML, 1ML SQ SCH (19:41)
[2020-07-21] MEDS: SODIUM CHLORIDE 0.45% 1,000 ML IV SCH (19:41)
[2020-07-21 19:57] VITALS: BP 125/63
[2020-07-21 22:09] VITALS: BP 125/63
[2020-07-22] VITALS (7 sets, daily range): BP systolic 111–133; BP diastolic 60–75
[2020-07-22] MEDS: HEPARIN 5,000 UNITS/ML, 1ML SQ SCH ×3 (03:50→21:13)
[2020-07-22 06:13] LABS: MEAN CORPUSCULAR HEMOGLOBIN 36.2 pg (27.5-34.5); MEAN CORPUSCULAR HGB CONC 34.7 g/dL (33.2-36.2); MEAN PLATELET VOLUME 8.8 fL (7.4-10.4); PLATELET COUNT 114 x10^3/uL (130-400); RED BLOOD COUNT 2.95 x10^6/uL (4.38-5.82); RED CELL DISTRIBUTION WIDTH 16.4 % (9.4-14.8)
[2020-07-22 06:21] LABS: CHLORIDE 109 mmol/L (98-107)
[2020-07-22 06:28] LABS: ALANINE AMINOTRANSFERASE 97 U/L (12-78); ALBUMIN 2.4 g/dL (3.4-5.0); ALKALINE PHOSPHATASE 128 U/L (45-117); ANION GAP 8 mmol/L (5-15); BILIRUBIN,TOTAL 0.9 mg/dL (0.2-1.0); CALCIUM 8.9 mg/dL (8.5-10.1); CREATININE 0.97 mg/dL (0.7-1.3); TOTAL PROTEIN 8.6 g/dL (6.4-8.2)
[2020-07-22 06:52] LABS: BAND#(MANUAL) 0.17 x10^3/uL; BANDS%(MANUAL) 5 % (0-7); BASOS% (MANUAL) 3 % (0-1); LYMPH#(MANUAL) 1.09 x10^3/uL (1-3.4); LYMPHS% (MANUAL) 33 % (22-44); METAMYELOCYTES# (MANUAL) 0.03 x10^3/uL (0-0); METAMYELOCYTES% (MANUAL) 1 % (0-1); MONOS#(MANUAL) 0.53 x10^3/uL (0.3-2.7); MONOS% (MANUAL) 16 % (2-9); SEG#(MANUAL) 1.39 x10^3/uL (1.8-6.8); SEGS% (MANUAL) 42 % (42-75)
[2020-07-22 06:53] LABS: ANISOCYTOSIS 1+
[2020-07-22 06:54] LABS: <PLATELET ESTIMATE> DECREASED; <PLT MORPHOLOGY> NORMAL PLT MORPH
[2020-07-22] MEDS: FOLIC ACID 1 MG TABLET PO SCH (08:20)
[2020-07-22] MEDS: CYANOCOBALAMIN 1,000 MCG TABLET PO SCH (08:20)
[2020-07-22] MEDS: SENNA/DOCUSATE TABLET PO SCH (08:20)
[2020-07-22] MEDS ORDERED: TEMPLATE NON-FORMULARY MED. (Glucosamine Hcl** 1,500 MG) PO SCH (09:00)
[2020-07-22] MEDS: SODIUM CHLORIDE 0.45% 1,000 ML IV SCH ×2 (13:34→17:21)
[2020-07-23] MEDS: SODIUM CHLORIDE 0.45% 1,000 ML IV SCH ×2 (04:30→15:14)
[2020-07-23] MEDS: HEPARIN 5,000 UNITS/ML, 1ML SQ SCH ×2 (04:53→13:11)
[2020-07-23 07:15] VITALS: BP 149/79
[2020-07-23 07:38] LABS: MEAN CORPUSCULAR HEMOGLOBIN 35.6 pg (27.5-34.5); MEAN CORPUSCULAR HGB CONC 33.6 g/dL (33.2-36.2); MEAN PLATELET VOLUME 8.6 fL (7.4-10.4); PLATELET COUNT 120 x10^3/uL (130-400); RED BLOOD COUNT 3.02 x10^6/uL (4.38-5.82); RED CELL DISTRIBUTION WIDTH 16.5 % (9.4-14.8)
[2020-07-23 07:50] LABS: ANION GAP 5 mmol/L (5-15); CALCIUM 8.5 mg/dL (8.5-10.1); CHLORIDE 110 mmol/L (98-107)
[2020-07-23 07:52] LABS: CREATININE 0.85 mg/dL (0.7-1.3)
[2020-07-23 08:22] LABS: BAND#(MANUAL) 0.12 x10^3/uL; BANDS%(MANUAL) 3 % (0-7); EOS#(MANUAL) 0.08 x10^3/uL (0.0-0.4); EOS% (MANUAL) 2 % (1-7); LYMPH#(MANUAL) 1.48 x10^3/uL (1-3.4); LYMPHS% (MANUAL) 38 % (22-44); MONOS#(MANUAL) 0.47 x10^3/uL (0.3-2.7); MONOS% (MANUAL) 12 % (2-9); SEG#(MANUAL) 1.76 x10^3/uL (1.8-6.8); SEGS% (MANUAL) 45 % (42-75)
[2020-07-23 08:23] LABS: <PLATELET ESTIMATE> DECREASED; <PLT MORPHOLOGY> NORMAL PLT MORPH; ANISOCYTOSIS 1+
[2020-07-23] MEDS: FOLIC ACID 1 MG TABLET PO SCH (08:31)
[2020-07-23] MEDS: CYANOCOBALAMIN 1,000 MCG TABLET PO SCH (08:32)
[2020-07-23] MEDS: SENNA/DOCUSATE TABLET PO SCH (08:33)
[2020-07-23 12:41] VITALS: BP 134/67
== END 2020-07-23 15:30 | disposition home or self-care (01) ==
LOC: ED 16:19 → INTOOBSV 17:41 → EDIP 17:41 → 4NE 17:56 → DCLOUNGE 07-23 15:28 → UNDODISIN 07-23 15:30
PROVIDERS: ADMIT Family Medicine; ATTEND Hospitalist
DX: R62.7 Adult failure to thrive (principal); R53.1 Weakness; S00.81XA Abrasion of other part of head, initial encounter; S80.211A Abrasion, right knee, initial encounter; S80.212A Abrasion, left knee, initial encounter; C90.00 Multiple myeloma not having achieved remission; D53.9 Nutritional anemia, unspecified; D69.6 Thrombocytopenia, unspecified; E87.2 Acidosis; R74.01 Elevation of levels of liver transaminase levels; I10 Essential (primary) hypertension; E66.9 Obesity, unspecified; E78.5 Hyperlipidemia, unspecified; R29.6 Repeated falls; Z85.46 Personal history of malignant neoplasm of prostate; Z85.51 Personal history of malignant neoplasm of bladder; Z79.899 Other long term (current) drug therapy; Z86.711 Personal history of pulmonary embolism; Z87.440 Personal history of urinary (tract) infections; W18.30XA Fall on same level, unspecified, initial encounter; Y93.89 Activity, other specified; Y92.89 Other specified places as the place of occurrence of the external cause
CPT/HCPCS: 36415; 70450; 71045; 72125; 80048; 80053; 81001; 82607; 83690; 84484; 85025; 93005; 96360; 96361; 96372; 97161; 97530; 99285; G0378; J1644

== ENCOUNTER 2020-07-29 11:18 | Day surgery (SDC) | payer MEDICARE ==
[~2020-07-29] VITALS: Ht 165.1 cm; Wt 83.6 kg
[2020-07-29] MEDS ORDERED: GEMCITABINE HCL 1,000 MG in SODIUM CHLORIDE 0.9% 23.7 ML IS ONE (12:00)
[2020-07-29] MEDS ORDERED: CYAN1TAB29 PO (12:11)
[2020-07-29] MEDS ORDERED: LISI-170 PO (12:11)
[2020-07-29] MEDS ORDERED: VITAMIN B12 PO (12:11)
[2020-07-29] MEDS ORDERED: FOLI0.8T5 PO (12:11)
[2020-07-29] MEDS ORDERED: PROBIOTIC PO (12:13)
[2020-07-29 12:16] VITALS: BP 126/74
[2020-07-29] MEDS ORDERED: LACTATED RINGERS 1,000 ML IV SCH (12:30)
[2020-07-29] MEDS ORDERED: CHLORHEXIDINE 15 ML UDC PO ONE (12:30)
[2020-07-29] MEDS ORDERED: FENTANYL PF 250 MCG/5ML ONE (12:37)
[2020-07-29] MEDS ORDERED: MIDAZOLAM 1 MG/ML, 2ML ONE (12:37)
[2020-07-29] MEDS ORDERED: SUCCINYLCHOLINE 20 MG/ML, 10ML ONE (12:37)
[2020-07-29] MEDS ORDERED: PROPOFOL 10 MG/ML, 20ML ONE (12:38)
[2020-07-29] MEDS ORDERED: ONDANSETRON 2MG/ML, 2ML IVPush PRN (13:00)
[2020-07-29] MEDS ORDERED: HYDROmorphone 1 MG/ML, 1ML INJ IVPush PRN (13:00)
[2020-07-29] MEDS ORDERED: FENTANYL PF 100 MCG/2ML IV PRN (13:00)
[2020-07-29] MEDS ORDERED: LABETALOL 5MG/ML, 20ML IV PRN (13:00)
[2020-07-29] MEDS ORDERED: OXYcodone 5 MG/5 ML ORAL.SOL UDC PO PRN (13:00)
[2020-07-29] MEDS ORDERED: ACETAMINOPHEN 325 MG TABLET PO PRN (13:00)
[2020-07-29] MEDS ORDERED: hydrALAzine 20 MG/ML, 1ML IV PRN (13:00)
[2020-07-29] MEDS ORDERED: CEFAZOLIN 1,000 MG ONE (13:03)
[2020-07-29] MEDS ORDERED: ONDANSETRON 2MG/ML, 2ML ONE (13:03)
[2020-07-29] MEDS ORDERED: ONDANSETRON 2MG/ML, 2ML IV PRN (14:00)
[2020-07-29] MEDS ORDERED: ACETAMINOPHEN 325 MG TABLET ONE (15:24)
== END 2020-07-29 16:52 | disposition home or self-care (01) ==
LOC: OUT 11:18
PROVIDERS: ATTEND Urology
DX: D49.4 Neoplasm of unspecified behavior of bladder (principal); C67.0 Malignant neoplasm of trigone of bladder; I10 Essential (primary) hypertension; F03.90 Unspecified dementia, unspecified severity, without behavioral disturbance, psychotic disturbance, mood disturbance, and anxiety; Z20.822 Contact with and (suspected) exposure to COVID-19; Z79.899 Other long term (current) drug therapy; Z88.2 Allergy status to sulfonamides
CPT/HCPCS: 51720; 52234; 82962; 87635; 88307; 88341; 88342; J0330; J0690; J2250; J2405; J2704; J3010; J7120

== ENCOUNTER → 2020-07-31 | Outpatient (CLI) | payer MEDICARE ==
[~2020-07-31] MED LIST changes: +CYAN1TAB29 PO; +FOLI0.8T5 PO; +LISI-170 PO; +PROBIOTIC PO; +VITAMIN B12 PO
== END | disposition home or self-care (01) ==
LOC: CFH 09:26
PROVIDERS: ATTEND Specialist
DX: C90.00 Multiple myeloma not having achieved remission (principal); I08.3 Combined rheumatic disorders of mitral, aortic and tricuspid valves; D47.2 Monoclonal gammopathy; R94.5 Abnormal results of liver function studies
CPT/HCPCS: 93306

== ENCOUNTER → 2020-08-13 | Outpatient (CLI) | payer MEDICARE | END | disposition home or self-care (01) | LOC: RAD 10:29 | PROVIDERS: ATTEND Urology | DX: C61 Malignant neoplasm of prostate (principal) | CPT/HCPCS: 78306; A9503 ==